=== PATIENT | female | born 1965 | race Caucasian/White ===

== ENCOUNTER → 2018-06-30 09:13 | Outpatient (CLI) | payer OTHER, SELFPAY ==
--- NOTE | 2018-06-30 | DI.MG.S_ITS ---
BILATERAL DIGITAL SCREENING MAMMOGRAM 3D/2D WITH CAD: 06/30/2018 CLINICAL: Routine screening. Family history of breast cancer. Comparison is made to exams dated: 06/24/2017 mammogram, 06/20/2016 mammogram, 06/08/2015 mammogram, and 06/06/2014 mammogram - [facility]. There are scattered fibroglandular elements in both breasts. Current study was also evaluated with a Computer Aided Detection (CAD) system. No significant masses, calcifications, or other findings are seen in either breast. There has been no significant interval change. IMPRESSION: NEGATIVE There is no mammographic evidence of malignancy. A 1 year screening mammogram is recommended. This exam was interpreted at Station ID: [id number]. NOTE: For mammograms, a report in lay terms will be sent to the patient. Approximately 15% of breast malignancies will not be visualized mammographically. In the management of a palpable breast mass, a negative mammogram must not discourage biopsy of a clinically suspicious lesion. Electronically Signed By: Bairon javed/jesus alberto:06/30/2018 11:21:13 letter sent: Normal Exam ACR BI-RADS Category 1: Negative 3341F
== END ==
PROVIDERS: PCP Nurse Practitioner Family; Visit Provider Nurse Practitioner Family
DX: Z12.31 Encounter for screening mammogram for malignant neoplasm of breast (principal); Z80.3 Family history of malignant neoplasm of breast
CPT/HCPCS: 77063; 77067

== ENCOUNTER 2019-01-31 23:01 | Emergency (ER) | payer OTHER, SELFPAY ==
[2019-01-31 23:16] VITALS: BP 135/68; PULSE 52; RESP 14; TEMP 36.8; O2SAT 99; BMI 25.8
--- NOTE | 2019-01-31 23:56 | PC.NURSE ---
Pt resting in bed sitting up. AAOx3. reports 2 nights ago was turning over in bed and coughed and felt a pull in her left thoracic back. pain palpated to the left of the thoracic spine under shoulder blade. reports taking NSAIDs without help. ambulatory. reports h/o cervical neck fusion in the past with no complications. 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
--- NOTE | 2019-02-01 00:41 | ED.BACK ---
HPI - Back Pain/Injury General Chief Complaint: Back Pain/Injury Stated Complaint: pain in back Time Seen by Provider: 02/01/19 00:31 Source: patient Mode of arrival: ambulatory Limitations: no limitations History of Present Illness HPI Narrative: Patient comes emergency department complaining of back pain after rolling over in bed and coughing at the same time last night. She states that she felt a twinge in her back, but that she took it easy today and tried not to aggravate it further. However, tonight, she states that her back was hurting and she could not get to sleep, so she decided to come in. Patient denies any numbness or tingling in her extremities. No loss of bowel or bladder control. Patient states she does not have any abdominal pain or chest pain. No shortness of breath or fever. No nausea or vomiting. No dysuria. Patient has a history of a cervical spinal fusion. She states she has also had surgery on her back, but this has been many years ago and her back has been fine since. She rates her pain a 5/10 and states that it is worse with certain movements, but not necessarily with deep breaths. No other complaints at this time. Related Data Previous Rx's Medication Instructions Recorded hydrocodone-acetaminophen [[place]] 1 tab PO Q6H PRN #10 tab 02/01/19 Allergies Allergy/AdvReac Type Severity Reaction Status Date / Time From ALEVE Allergy Unknown Uncoded 09/03/17 12:27 From COLD AND ALLERGY Allergy Unknown Uncoded 09/03/17 12:27 Review of Systems Constitutional Constitutional: Denies chills, Denies fatigue, Denies fever(s), Denies frequent falls, Denies lethargy and Denies weakness Eyes Eyes: Denies change in vision, Denies eye discharge, Denies irritation and Denies loss of vision ENT Ears, Nose, Mouth, and Throat: Denies change in voice, Denies dizziness, Denies neck pain, Denies sore throat and Denies throat swelling Cardiovascular Cardiovascular: Denies chest pain, Denies irregular heart rhythm, Denies lightheadedness, Denies palpitations, Denies dyspnea, Denies dyspnea on exertion and Denies orthopnea Respiratory Respiratory: Denies cough, Denies dyspnea, Denies dyspnea on exertion and Denies wheezing Gastrointestinal Gastrointestinal: Denies abdominal pain, Denies change in bowel habits, Denies diarrhea, Denies nausea and Denies vomiting Genitourinary Genitourinary: Denies hematuria, Denies flank pain, Denies urinary incontinence and Denies urinary urgency Musculoskeletal Musculoskeletal: Reports back pain, Denies muscle weakness, Denies neck pain, Denies numbness and Denies tingling Integumentary/Breasts Skin/Breast: Denies pruritus, Denies erythema, Denies rash and Denies wounds Neurologic Neurologic: Denies behavioral changes, Denies confusion, Denies dizziness, Denies frequent falls, Denies loss of vision, Denies numbness, Denies tingling and Denies weakness Psychiatric Psychiatric: Denies anxiety, Denies behavioral changes, Denies confusion, Denies depression, Denies homicidal ideation and Denies suicidal ideation Endocrine Endocrine: Denies fatigue, Denies flushing and Denies palpitations Hematologic/Lymphatic Hematologic/Lymphatic: Denies easy bruising Allergic/Immunologic Allergic/Immunologic: Denies urticaria, Denies throat swelling and Denies wheezing [facility] Medical History Healthy adult (Acute) Surgical History H/O neck surgery (Acute) Previous back surgery (Acute) Social History Smoking Status: Never smoker Social History Smoking Status: Never smoker Exam Initial Vital Signs Initial Vital Signs: Vital Signs Temperature 98.2 F 01/31/19 23:16 Pulse Rate 52 L 01/31/19 23:16 Respiratory Rate 14 01/31/19 23:16 Blood Pressure 135/68 01/31/19 23:16 Pulse Oximetry 99 01/31/19 23:16 Const General: cooperative and well developed Nutritional Appearance: well nourished Orientation: alert, awake, oriented x3 and not confused [facility] Head: normocephalic and atraumatic Ears: external ears normal Nose: external nose normal and No nasal discharge Face and sinus: face symmetric and No dry mucous membranes Mouth: oral mucosae normal and moist mucous membranes Teeth and gingiva: dentition normal Eyes General: appearance normal, both eyes and all related structures Eyelids: eyelids normal Conjunctivae: conjunctivae normal Sclera: sclerae normal Pupils: PERRL EOM: EOM intact bilaterally Neck Neck: normal visual inspection, trachea midline, No lymphadenopathy, No midline deformity and No JVD Lymphatic: No lymphedema Chest Chest: normal inspection of the chest Resp Effort & Inspection: normal respiratory effort, able to speak in complete sentences, no respiratory distress and no use of accessory muscles Auscultation: clear to auscultation bilaterally, no rales, no rhonchi and no wheezes Cardio Rate: regular rate Rhythm: regular rhythm Heart Sounds: no click, no gallops, no murmurs and no rubs Pulses: normal peripheral pulses GI Inspection: non-distended Palpation: soft, no hepatosplenomegaly, No guarding, No pulsatile mass and No tender Auscultation: normal bowel sounds Back/Spine/Pelvis Back: No CVA tenderness Cervical Spine: cervical ROM normal and No pain with cervical ROM Thoracic/Lumbar Spine: thoracic and lumbar spine normal to inspection Other: Patient has tenderness of the left paraspinal musculature in the intrascapular region. Mild muscle spasm is noted. Skin General: no rashes or lesions noted, No jaundice and No petechiae Neuro General: alert, oriented x3, gait normal and no focal motor deficits Speech: speech normal Extrem General: full ROM, no clubbing, cyanosis or edema, no pedal edema and no calf tenderness Psych Appearance: well kempt Mental Status: mental status grossly normal Attitude: cooperative Thought Content: normal and suicidality Judgment: judgment good Course Course Course Narrative: Patient was treated symptomatically in the emergency department with IM Toradol and Dilaudid. I did not find evidence of an emergent condition in the patient's description of symptoms or in her physical exam findings. Additionally, the patient's mechanism of injury was low risk. Patient was found to be feeling better. We have discussed the usual indications for return, as well as symptomatic treatment at home. Orders Ordered: Discontinued Medications Hydromorphone HCl (Dilaudid) 1 mg IM NOW ONE Stop: 02/01/19 00:42 Last Admin: 02/01/19 01:40 Dose: 1 mg Documented by: ROSI Ketorolac Tromethamine (Toradol) 30 mg IM NOW ONE Stop: 02/01/19 00:42 Last Admin: 02/01/19 01:41 Dose: 30 mg Documented by: ROSI Vital Signs Vital signs: Vital Signs - 8 hr 02/01/19 02:14 Pulse Rate 54 L Respiratory Rate 14 Blood Pressure 131/63 Pulse Oximetry 98 MDM - Back Pain/Injury Medical Records Attestation: I reviewed the patient's medical records. Discharge Plan Departure Patient Disposition: Home Clinical Impression: Thoracic back pain Qualifiers: Chronicity: acute Back pain laterality: left Qualified Code(s): M54.6 - Pain in thoracic spine Discharge Date/Time: 02/01/19 02:17 Instructions: DI for Back Spasm, DI for Back Strain or Sprain Prescriptions: New hydrocodone-acetaminophen [[place]] 5-325 mg tablet 1 tab PO Q6H PRN (Reason: pain) Qty: 10 RF: 0 Referrals: Lolita Zuniga ARNP [Primary Care Provider] -
[2019-02-01] MEDS: HYDROMORPHONE 1 MG INJ IM (01:40)
[2019-02-01] MEDS: KETOROLAC 60 MG/2 ML VIAL 30 MG IM (01:41)
[2019-02-01 02:14] VITALS: BP 131/63; PULSE 54; RESP 14; O2SAT 98
== END 2019-02-01 02:17 | disposition home or self-care (01) ==
PROVIDERS: Emergency Provider Emergency Medicine; PCP Nurse Practitioner Family
DX: M54.6 Pain in thoracic spine (principal)
CPT/HCPCS: 96372; 99282; 99283; J1170; J1885

== ENCOUNTER → 2019-07-01 08:40 | Outpatient (CLI) | payer OTHER, SELFPAY ==
--- NOTE | 2019-07-01 09:07 | DI.MG.S_ITS ---
Patient Name: THEO GRAY date: 1965 Sex: F Attending Physician: Shukri Indications: Date: 07/01/2019 09:07 At the request of: CARLOS WANG Procedure: MM screening mammo BI BILATERAL DIGITAL SCREENING MAMMOGRAM 3D/2D WITH CAD: 07/01/2019 CLINICAL: Routine screening. Family history of breast cancer. Comparison is made to exams dated: 06/30/2018 mammogram, 06/24/2017 mammogram, 06/20/2016 mammogram, 06/08/2015 mammogram, and 06/06/2014 mammogram - [facility]. The tissue of both breasts is heterogeneously dense. This may lower the sensitivity of mammography. Current study was also evaluated with a Computer Aided Detection (CAD) system. No significant masses, calcifications, or other findings are seen in either breast. There has been no significant interval change. IMPRESSION: NEGATIVE There is no mammographic evidence of malignancy. A 1 year screening mammogram is recommended. This exam was interpreted at Station ID: [id number]. NOTE: For mammograms, a report in lay terms will be sent to the patient. Approximately 15% of breast malignancies will not be visualized mammographically. In the management of a palpable breast mass, a negative mammogram must not discourage biopsy of a clinically suspicious lesion. Electronically Signed By: Woo walker/jesus alberto:07/01/2019 18:12:05 letter sent: Normal Exam ACR BI-RADS Category 1: Negative 3341F
== END ==
PROVIDERS: PCP Nurse Practitioner Family; Referring Provider Internal Medicine; Visit Provider Internal Medicine
DX: Z12.31 Encounter for screening mammogram for malignant neoplasm of breast (principal); Z80.3 Family history of malignant neoplasm of breast
CPT/HCPCS: 77063; 77067

== ENCOUNTER → 2019-07-29 12:02 | Outpatient (CLI) | payer OTHER, SELFPAY ==
--- NOTE | 2019-07-29 | DI.RAD.S_ITS ---
PROCEDURE: XR KUB INDICATIONS: VERTIGO TECHNIQUE: One view of the abdomen acquired. COMPARISON: None. FINDINGS: Surgical changes and devices: None. Bowel: Bowel gas pattern is nonobstructive. Moderate stool projects in the right colon. Soft tissues: No suspicious abdominal calcifications. Visualized solid organ contours appear normal in size. Bones: No suspicious bony lesions. IMPRESSION: No specific evidence of bowel obstruction seen at this time although if the patient's symptoms do not improve, continued surveillance with abdominal series radiographs could be performed. Moderate stool projecting predominantly within the right colon Dictated by: Domingo Toney M.D. on 07/29/2019 at 16:42 Approved by: Domingo Toney M.D. on 07/29/2019 at 16:43
== END ==
PROVIDERS: PCP Nurse Practitioner Family; Referring Provider Student in an Organized Health Care Education/Training Program; Visit Provider Student in an Organized Health Care Education/Training Program
DX: R31.9 Hematuria, unspecified (principal); R10.9 Unspecified abdominal pain
CPT/HCPCS: 74018

== ENCOUNTER → 2020-07-06 08:22 | Outpatient (CLI) | payer OTHER, SELFPAY ==
--- NOTE | 2020-07-06 | DI.MG.S_ITS ---
BILATERAL DIGITAL SCREENING MAMMOGRAM 3D/2D WITH CAD: 07/06/2020 CLINICAL: Routine screening. Family history of breast cancer. Comparison is made to exams dated: 07/01/2019 mammogram, 06/30/2018 mammogram, 06/24/2017 mammogram, 06/20/2016 mammogram, 06/08/2015 mammogram, and 06/06/2014 mammogram - [facility]. The tissue of both breasts is heterogeneously dense. This may lower the sensitivity of mammography. Current study was also evaluated with a Computer Aided Detection (CAD) system. There is a biopsy clip in the left breast. No significant masses, calcifications, or other findings are seen in either breast. There has been no significant interval change. IMPRESSION: NEGATIVE There is no mammographic evidence of malignancy. A 1 year screening mammogram is recommended. This exam was interpreted at Station ID: [id number]. NOTE: For mammograms, a report in lay terms will be sent to the patient. Approximately 15% of breast malignancies will not be visualized mammographically. In the management of a palpable breast mass, a negative mammogram must not discourage biopsy of a clinically suspicious lesion. Electronically Signed By: Feliciano tirado/jesus alberto:07/06/2020 09:20:24 letter sent: Normal Exam ACR BI-RADS Category 1: Negative 3341F
== END ==
PROVIDERS: PCP Internal Medicine; Referring Provider Internal Medicine; Visit Provider Internal Medicine
DX: Z12.31 Encounter for screening mammogram for malignant neoplasm of breast (principal); Z80.3 Family history of malignant neoplasm of breast
CPT/HCPCS: 77063; 77067

== ENCOUNTER → 2021-03-30 07:31 | Outpatient (CLI) | payer OTHER, SELFPAY ==
[2021-03-30 08:47] LABS: Alanine Aminotransferase 21 IU/L (<35); Albumin 4.6 g/dL (3.5-5.0); Albumin Globulin Ratio 1.7 (1.0-2.8); Alkaline Phosphatase 56 U/L (38-126); Aspartate Aminotransferase 23 IU/L (14-36); BUN Creatinine Ratio 27.3 (6-22); Bilirubin Total 0.6 mg/dL (0.2-1.3); Blood Urea Nitrogen 21 mg/dL (7-17); Calcium 10.2 mg/dL (8.4-10.2); Carbon Dioxide 28 mmol/L (22-32); Chloride 105 mmol/L (98-107); Cholesterol 259 mg/dL (140-199); Estimated Glomerular Filt Rate > 60.0 mL/min (>60); Globulin 2.7 g/dL (1.7-4.1); Glucose 95 mg/dL (70-100); HDL Cholesterol 77 mg/dL (40-60); HEMOLYSIS < 15 (0-50); LDL Cholesterol Calculated 167 mg/dL (<100); Potassium 4.3 mmol/L (3.4-5.1); Sodium 140 mmol/L (137-145); Total Protein 7.3 g/dL (6.3-8.2); Triglycerides 75 mg/dL (35-150)
[2021-03-30 13:48] LABS: Add Manual Diff / Slide Review NO; Basophils Absolute Auto 0 /uL (0-100); Basophils Percent Auto 0.1 % (0-2); Eosinophils Absolute Auto 0 /uL (0-450); Eosinophils Percent Auto 0.2 % (2-4); Hematocrit 38.2 % (36-46); Hemoglobin 12.9 g/dL (12.0-16.0); Lymphocytes Absolute Auto 1300 /uL (1100-4500); Lymphocytes Percent Auto 11.2 % (25-40); Mean Corpuscular HGB Conc 33.8 % (30-36); Mean Corpuscular Hemoglobin 28.6 PG (26-34); Mean Corpuscular Volume 84.5 fL (80-100); Monocytes Absolute Auto 300 /uL (0-900); Monocytes Percent Auto 2.4 % (3-14); Neutrophils Absolute Auto 10100 /uL (1500-7000); Neutrophils Percent Auto 86.1 % (50-75); Platelet Count 288 X10^3/uL (150-400); Red Blood Cell Count 4.52 X10^6/uL (4.0-5.2); Red Cell Distribution Width 12.9 % (11.6-14.8); White Blood Cell Count 11.8 X10^3/uL (4.5-11.0)
[2021-03-30 14:45] LABS: Hemoglobin A1C% w Est Avg Glu 5.2 % (4.0-6.0)
== END ==
PROVIDERS: PCP Internal Medicine; Referring Provider Internal Medicine; Visit Provider Internal Medicine
DX: Z13.0 Encounter for screening for diseases of the blood and blood-forming organs and certain disorders involving the immune mechanism (principal); Z13.6 Encounter for screening for cardiovascular disorders; Z13.220 Encounter for screening for lipoid disorders; Z13.29 Encounter for screening for other suspected endocrine disorder
CPT/HCPCS: 36415; 80053; 80061; 83036; 84443; 85025

== ENCOUNTER → 2021-07-12 08:25 | Outpatient (CLI) | payer OTHER, SELFPAY ==
--- NOTE | 2021-07-12 | DI.MG.S_ITS ---
BILATERAL DIGITAL SCREENING MAMMOGRAM 3D/2D WITH CAD: 07/12/2021 CLINICAL: Routine screening. Comparison is made to exams dated: 07/06/2020 mammogram, 07/01/2019 mammogram, and 06/30/2018 mammogram - [facility]. The tissue of both breasts is heterogeneously dense. This may lower the sensitivity of mammography. Current study was also evaluated with a Computer Aided Detection (CAD) system. There is a biopsy clip in the left breast. No significant masses, calcifications, or other findings are seen in either breast. There has been no significant interval change. IMPRESSION: NEGATIVE There is no mammographic evidence of malignancy. A 1 year screening mammogram is recommended. This exam was interpreted at Station ID: [id number]. NOTE: For mammograms, a report in lay terms will be sent to the patient. Approximately 15% of breast malignancies will not be visualized mammographically. In the management of a palpable breast mass, a negative mammogram must not discourage biopsy of a clinically suspicious lesion. Electronically Signed By: Jerrell Buckner M.D., jr/jesus alberto:07/12/2021 09:24:50 letter sent: Normal Exam ACR BI-RADS Category 1: Negative 3341F
== END ==
PROVIDERS: PCP Internal Medicine; Referring Provider Internal Medicine; Visit Provider Internal Medicine
DX: Z12.31 Encounter for screening mammogram for malignant neoplasm of breast (principal)
CPT/HCPCS: 77063; 77067

== ENCOUNTER → 2022-06-27 19:09 | Outpatient (CLI) | payer OTHER, SELFPAY | PROVIDERS: PCP Internal Medicine; Visit Provider Registered Nurse | DX: R30.0 Dysuria (principal) | CPT/HCPCS: 87077; 87086; 87186 ==

== ENCOUNTER → 2022-07-23 15:16 | Outpatient (ROUT) | payer OTHER, SELFPAY ==
[2022-07-23 16:01] LABS: Influenza A - CEPHEID Flu A NEGATIVE (NEGATIVE); Influenza B - CEPHEID Flu B NEGATIVE (NEGATIVE); Respiratory Syncytial Virus Negative (Negative)
[2022-07-23 16:03] LABS: COVID-19 CEPHEID 4-PLEX PCR Negative (Negative)
== END ==
PROVIDERS: PCP Internal Medicine; Visit Provider Internal Medicine
DX: R09.81 Nasal congestion (principal)
CPT/HCPCS: 0241U

== ENCOUNTER → 2022-07-25 09:15 | Outpatient (CLI) | payer OTHER, SELFPAY ==
--- NOTE | 2022-07-25 | DI.MG.S_ITS ---
BILATERAL DIGITAL SCREENING MAMMOGRAM 3D/2D WITH CAD: 07/25/2022 CLINICAL: Routine screening. Comparison is made to exams dated: 07/12/2021 mammogram, 07/06/2020 mammogram, and 07/01/2019 mammogram - [facility]. Both breasts are heterogeneously dense, which may obscure small masses (category c / 51-75% glandular tissue). Current study was also evaluated with a Computer Aided Detection (CAD) system. There is a biopsy clip in the left breast. No significant masses, calcifications, or other findings are seen in either breast. There has been no significant interval change. IMPRESSION: NEGATIVE There is no mammographic evidence of malignancy. A 1 year screening mammogram is recommended. This exam was interpreted at Station ID: [id number]. NOTE: For mammograms, a report in lay terms will be sent to the patient. Approximately 15% of breast malignancies will not be visualized mammographically. In the management of a palpable breast mass, a negative mammogram must not discourage biopsy of a clinically suspicious lesion. Electronically Signed By: Jerrell Buckner M.D., jr/jesus alberto:07/25/2022 15:15:40 letter sent: Normal Exam ACR BI-RADS Category 1: Negative 3341F
== END ==
PROVIDERS: PCP Internal Medicine; Referring Provider Internal Medicine; Visit Provider Internal Medicine
DX: Z12.31 Encounter for screening mammogram for malignant neoplasm of breast (principal)
CPT/HCPCS: 77063; 77067

== ENCOUNTER → 2023-08-19 09:56 | Outpatient (CLI) | payer OTHER, SELFPAY ==
--- NOTE | 2023-08-19 | DI.MG.S_ITS ---
BILATERAL DIGITAL SCREENING MAMMOGRAM 3D/2D WITH CAD: 08/19/2023 CLINICAL: Routine screening. Family history of breast cancer. Comparison is made to exams dated: 07/25/2022 mammogram, 07/12/2021 mammogram, and 07/06/2020 mammogram - [facility]. Both breasts are heterogeneously dense, which may obscure small masses (category c / 51-75% glandular tissue). Current study was also evaluated with a Computer Aided Detection (CAD) system. There is a biopsy clip in the left breast. No significant masses, calcifications, or other findings are seen in either breast. There has been no significant interval change. IMPRESSION: NEGATIVE There is no mammographic evidence of malignancy. A 1 year screening mammogram is recommended. Based on the Tyrer Cuzick model (a risk assessment model) the patient's lifetime risk is 17.4% and her 10 year risk is 7.3%. According to the ACR, ACS, and NCCN guidelines, an annual breast MRI exam along with mammogram is recommended if the patient's lifetime risk is 20% or greater. This exam was interpreted at Station ID: [id number]. NOTE: For mammograms, a report in lay terms will be sent to the patient. Approximately 15% of breast malignancies will not be visualized mammographically. In the management of a palpable breast mass, a negative mammogram must not discourage biopsy of a clinically suspicious lesion. Electronically Signed By: Bairon javed/jesus alberto:08/19/2023 17:40:55 letter sent: Normal Exam ACR BI-RADS Category 1: Negative 3341F
== END ==
LOC: MAMMO 09:58
PROVIDERS: PCP Internal Medicine; Referring Provider Internal Medicine; Visit Provider Internal Medicine
DX: Z12.31 Encounter for screening mammogram for malignant neoplasm of breast (principal); Z80.3 Family history of malignant neoplasm of breast; R92.333 Mammographic heterogeneous density, bilateral breasts
CPT/HCPCS: 77063; 77067

== ENCOUNTER 2023-12-01 06:27 | Emergency (ER) | payer OTHER, SELFPAY ==
[2023-12-01 06:42] VITALS: BP 127/65; PULSE 61; RESP 17; TEMP 36.5; O2SAT 96; BMI 23.5
--- NOTE | 2023-12-01 07:09 | ED_ITS ---
HPI - Skin/Abscess/Foreign Bdy General Chief complaint: Skin/Abscess/Foreign Body Stated complaint: corn on rt foot Time Seen by Provider: 12/01/23 07:00 Source: patient Mode of arrival: Ambulatory Limitations: no limitations History of Present Illness HPI narrative: Patient is a 58-year-old female who stated that she had a corn on the bottom of her right foot that she picked out a couple days ago. States she was in a strange yesterday and today as noticed some redness around the area and some clear drainage this morning. Related Data Previous Rx's Medication Instructions Recorded hydrocodone 5 mg-acetaminophen 325 1 tab PO Q6H PRN pain #10 tabs 02/01/19 mg tablet ([place]) cephalexin 500 mg capsule 500 mg PO QID 5 days #20 caps 12/01/23 Allergies Allergy/AdvReac Type Severity Reaction Status Date / Time From ALEVE Allergy Unknown Uncoded 09/03/17 12:27 From COLD AND ALLERGY Allergy Unknown Uncoded 09/03/17 12:27 Review of Systems Integumentary/Breasts Skin/Breast: Reports system reviewed and no additional complaints, except as documented Neurologic Neurologic: Reports system reviewed and no additional complaints, except as documented Patient History Medical History Healthy adult Surgical History H/O neck surgery Previous back surgery Social History Smoking Status: Never smoker Smoking Status: Never smoker alcohol intake frequency: a few times a week Substance Use Type: does not use Exam Initial Vital Signs Initial Vital Signs: Vital Signs Temperature 97.7 F 12/01/23 06:42 Pulse Rate 61 12/01/23 06:42 Respiratory Rate 17 12/01/23 06:42 Blood Pressure 127/65 12/01/23 06:42 Pulse Oximetry 96 12/01/23 06:42 Oxygen Delivery Method Room Air 12/01/23 06:42 Skin Other: Patient with a small area of redness on the plantar aspect of the foot at the base of the 4th toe. No drainage noted today. Course Vital Signs Vital signs: Vital Signs - 8 hr 12/01/23 06:42 Temperature 97.7 F Pulse Rate 61 Respiratory Rate 17 Blood Pressure 127/65 Pulse Oximetry 96 Oxygen Delivery Method Room Air MDM - Skin/Abscess/Foreign Bdy MDM Narrative Medical decision making narrative: Small area of redness consistent with an infection. Will send home with a prescription for Keflex. She was otherwise nontoxic. Discharge Plan Departure Patient Disposition: Home Clinical Impression: Cellulitis Instructions: DI for Cellulitis -- Adult Activity Restrictions/Additional Instructions: Take the antibiotics as directed. You can shower like normal and use soap and water like normal. Return to the emergency department for new symptoms. Prescriptions: New cephalexin 500 mg capsule 500 mg PO QID 5 Days Qty: 20 0RF No Action hydrocodone-acetaminophen [[place]] 5-325 mg tablet 1 tab PO Q6H PRN (Reason: pain) Qty: 10 0RF Referrals: Deepti Pepe DPM [Physician] - Fela Watt ARNP [Primary Care Provider] - Stand Alone Forms: Patient Portal/API
== END 2023-12-01 07:20 | disposition home or self-care (01) ==
PROVIDERS: Emergency Provider Emergency Medicine; PCP Internal Medicine
DX: L03.115 Cellulitis of right lower limb (principal)
CPT/HCPCS: 99281; 99283

== ENCOUNTER → 2024-08-19 14:44 | Outpatient (CLI) | payer OTHER, SELFPAY ==
--- NOTE | 2024-08-19 14:46 | DI.MG.S_ITS ---
MM screening mammo BI: 08/19/2024. BI-RADS: 2 CLINICAL: 59-year old female for bilateral screening mammogram. Tyrer-Cuzick lifetime risk of 7.6%. No personal or first-degree family history of breast cancer. The patient had a prior left breast biopsy. PRIOR EXAMS 08/19/2023, 07/25/2022, 07/12/2021, 07/06/2020, 07/01/2019, 06/30/2018, 06/24/2017, 06/20/2016, 06/08/2015. MAMMOGRAPHY TECHNIQUE: 2D and 3D (tomosynthesis) digital mammographic views obtained, with additional images as needed for full coverage. Current study was also evaluated with a Computer Aided Detection (CAD) system. DENSITY C. The breasts are heterogeneously dense, which may obscure small masses. MAMMOGRAPHY FINDINGS Right: No suspicious mass, asymmetry, microcalcification, or other abnormality seen. Left: Biopsy marker present on the left. There are no suspicious masses, calcifications, or other findings in the breast. IMPRESSION: Right * No evidence of malignancy. Left * No evidence of malignancy with benign findings. RECOMMENDATIONS Bilateral * Annual screening mammography. OVERALL ASSESSMENT CATEGORY BI-RADS-2: Benign. The [employer] recommends annual screening mammography beginning at age 40 for women with average risk of breast cancer. ELECTRONICALLY SIGNED: Eugenia Dunlap M.D. on 08/20/2024 at 02:50:11 PM PT Interpreting Station ID: [id number]
== END ==
PROVIDERS: PCP Family Medicine; Referring Provider Family Medicine; Visit Provider Family Medicine
DX: Z12.31 Encounter for screening mammogram for malignant neoplasm of breast (principal); R92.333 Mammographic heterogeneous density, bilateral breasts
CPT/HCPCS: 77063; 77067

== ENCOUNTER → 2024-09-02 14:14 | Outpatient (CLI) | payer OTHER, SELFPAY ==
--- NOTE | 2024-09-02 14:15 | DI.RAD.S_ITS ---
PROCEDURE: XR DEXA AXIAL SKELETON INDICATIONS: SCREENING FOR OSTEOPOROSIS / POSTMENOPAUSAL COMPARISON: None. FINDINGS: Lumbar Spine: Bone mineral density 1.215 g/cm2, T score 1.5. Left Femoral Neck: Bone mineral density 0.864 g/cm2, T score 0.1. Left Hip: Bone mineral density 1.002 g/cm2, T score 0.5. Fracture Risk Calculation (when applicable): 10-year fracture risk of a major osteoporotic fracture 6.2 percent and of a hip fracture 0.1 percent. (T score greater or equal to -1.0 to: NORMAL) (T score from -1.1 to -2.4: OSTEOPENIA) (T score less than or equal to -2.5: OSTEOPOROSIS) IMPRESSION: Normal bone mineral density by WHO classification. Follow-up guidelines as follows: Osteoporosis: Consider a repeat DEXA and Vertebral Fracture Assessment (VFA) exam in 2 years or sooner if medically necessary, to reassess this patient's status. Osteopenia: Consider a repeat DEXA in 2-3 years to reassess this patient's status, or if there is a new clinical indication. Normal: Consider a repeat DEXA in 5 years or sooner, or if there is a new clinical indication. All treatment decisions require clinical judgment and consideration of individual patient factors, including patient preferences, comorbidities, previous drug use, risk factors not captured in the FRAX model (e.g., frailty, falls, vitamin D deficiency, increased bone turnover, interval significant decline in bone density ) and possible under- or over-estimation of fracture risk by FRAX. In addition, the NOF Guide recommends that FDA-approved medical therapies be considered in postmenopausal women and men age >= 50 years with a: * Hip or vertebral (clinical or morphometric) fracture * T-score of <=-2.5 at the spine or hip * Ten-year fracture probability by FRAX of >= 3% for hip fracture or >=20% for major osteoporotic fracture. Dictated by: Thom Diez M.D. on 09/02/2024 at 15:49 Approved by: Thom Diez M.D. on 09/02/2024 at 15:50
== END ==
LOC: RAD 14:14
PROVIDERS: PCP Family Medicine; Referring Provider Family Medicine; Visit Provider Family Medicine
DX: Z78.0 Asymptomatic menopausal state (principal)
CPT/HCPCS: 77080

== ENCOUNTER 2024-09-29 07:44 | Day surgery (SDC) | payer OTHER, SELFPAY ==
--- NOTE | 2024-09-29 08:30 | PM.HP.IH.1 ---
History of Present Illness History of Present Illness Date Patient Seen: 09/29/24 Chief complaint: Colonoscopy [facility] Medical History (Updated 12/16/23 @ 00:00 by ) Healthy adult Surgical History H/O neck surgery Previous back surgery Social History Smoking Status: Never smoker alcohol intake: current Meds Home Medications and Allergies Home Medications Medication Instructions Recorded Confirmed Type peg 3350-electrolytes 236 240 ml PO Q10M #4,000 mL 09/08/24 09/09/24 Rx gram-22.74 gram-6.74 gram-5.86 gram solution (Golytely) estradiol 0.01% (0.1 mg/gram) vaginal 09/09/24 09/09/24 History vaginal cream calcium 600 mg (as 1 tab PO BID 09/29/24 09/29/24 History carbonate)-vitamin D3 5 mcg (200 unit) tablet omega 7-jps-pnr-fish oil 1,600 ml PO 09/29/24 History mg-500 mg-800 mg/5 mL oral liquid (Fish Oil) psyllium 1 tbsp PO DAILY 09/29/24 09/29/24 History red yeast rice 600 mg capsule 1,200 mg PO DAILY 09/29/24 09/29/24 History Allergies Allergy/AdvReac Type Severity Reaction Status Date / Time NSAIDS (Non-Steroidal Allergy Wheezing Verified 09/29/24 08:20 Anti-Inflamma From COLD AND ALLERGY AdvReac Unknown Uncoded 09/29/24 08:20 Exam Narrative Exam Narrative: Oropharynx free of lesions Chest clear to auscultation percussion Cardiac exam reveals no S3 or murmur Assessment & Plan Assessment & Plan narrative: Follow-up 10 year screening colonoscopy. Risks, benefits, alternatives have been explained. Time-Based Coding :: [TOTAL MINUTES] spent with patient and on the chart (including review of chart, obtaining history, exam, reviewing outside data, placing orders, documenting exam and treatment plan, and counseling patient) on [DATE]. [employer] Document charge(s): No
--- NOTE | 2024-09-29 08:31 | PM.OP.COLON ---
Operative Date/Time/Diagnoses Date of procedure: 09/29/24 Time of procedure: 09:22 Pre-op diagnosis: See indication and findings Post-op diagnosis: same Procedure & Clinicians Study performed: Colonoscopy Same procedure as scheduled: Yes Indications: Follow-up screening colonoscopy and father with colon polyps Surgeon: Olivier Ramirez Procedure Notes Procedure in detail: After informed consent was obtained the patient was placed in left lateral decubitus position. Video colonoscope was introduced the rectum slowly advanced cecum. Preparation was good. On slow withdrawal mucosa was carefully examined. The scope was removed. The patient tolerated procedure well. Blood loss none Complications none Sedation mac Findings 1. Normal colonoscopy to cecum Patient should have follow-up colonoscopy in 5 to 10 years.
[2024-09-29] MEDS: LACTATED RINGERS 1,000 ML 42 ML IV (08:35)
[2024-09-29 08:38] VITALS: BP 122/65; PULSE 51; RESP 17; TEMP 36.4; O2SAT 100
[2024-09-29 09:25] VITALS: BP 93/47; PULSE 63; RESP 14; TEMP 36.2; O2SAT 97
[2024-09-29 09:30] VITALS: BP 82/49; PULSE 56; RESP 12; O2SAT 98
[2024-09-29 09:35] VITALS: BP 95/51; PULSE 57; RESP 14
[2024-09-29 09:40] VITALS: BP 105/60; PULSE 50; RESP 14; O2SAT 97
[2024-09-29 09:52] VITALS: BP 95/53; PULSE 48; RESP 16; TEMP 36.6; O2SAT 99
== END 2024-09-29 09:56 | disposition home or self-care (01) ==
PROVIDERS: PCP Family Medicine; Referring Provider Internal Medicine Gastroenterology; Visit Provider Internal Medicine Gastroenterology
PROC: 0DJD8ZZ Inspection of Lower Intestinal Tract, Via Natural or Artificial Opening Endoscopic (ICD-10-PCS; CPT 45378; principal; 2024-09-29 09:00)
DX: Z12.11 Encounter for screening for malignant neoplasm of colon (principal); Z83.719 Family history of colon polyps, unspecified
CPT/HCPCS: 45378; J2704